=== PATIENT | male | born 1945 | race Caucasian/White ===

== ENCOUNTER 2019-04-24 13:34 | Inpatient (IN) | payer MEDICARE, OTHER ==
[~2019-04-24] VITALS: Ht 167.6 cm; Wt 88.9 kg
[2019-04-24] MEDS ORDERED: SYNTHROID125 MCG PO (14:01)
[2019-04-24] MEDS ORDERED: OMEPRAZOLE20 M1 PO (14:01)
[2019-04-24] MEDS ORDERED: BAYER CHEWABLE81 MG PO (14:02)
[2019-04-24] MEDS ORDERED: CADUET 10 MG/101 TAB (14:02)
[2019-04-24] MEDS ORDERED: ZYLOPRIM100 MG PO (14:02)
[2019-04-24 14:22] VITALS: BP 133/72; BMI 31.7
[2019-04-24 14:33] LABS: BASOPHILS 0.2 % (0-2); EOSINOPHILS 0.1 % (0-7); HEMATOCRIT 36.4 % (42.0-54.0); HEMOGLOBIN 12.6 g/dL (13.5-17.5); IMMATURE GRANULOCYTES 0.2 % (0-5); LYMPHOCYTES 8.2 % (15-50); MCH 27.2 pg (26.0-34.0); MCHC 34.6 g/dL (31.0-37.0); MCV 78.6 fL (80.0-100.0); MEAN PLATELET VOLUME 9.1 fL (7.4-10.4); MONOCYTES 8.4 % (2-11); NEUTROPHILS 82.9 % (40-80); PLATELET COUNT 217 10x3/uL (130-400); RBC 4.63 10x6/uL (4.20-6.10); RDW 14.1 % (11.5-14.5); WBC 8.6 10x3/uL (4.8-10.8)
--- NOTE | 2019-04-24 14:42 | NUR ---
PATIENT ADMITTED TO ROOM 2222. ADMISSION ASSESSMENT COMPLETED. IV SITED TO LEFT WRIST. TEMP 101.8. WILL SPEAK WITH DR CALZADA ABOUT POSSIBLE BLOOD CULTURES BEFORE HANGING ABX.
--- NOTE | 2019-04-24 14:48 | NUR ---
SPOKE WITH MELQUIADES, NURSE FOR DR CALZADA. STATES WILL INFORM DR CALZADA OF TEMP AND CALL BACK WITH ORDERS. WILL CONTINUE TO MONITOR.
--- NOTE | 2019-04-24 16:18 | NUR ---
SPOKE WITH MELQUIADES, DR CALZADA'S NURSE, WHO STATED ORDER STAT BLOOD CULTURES AND TYLENOL 650 Q5PRN FEVER.
[2019-04-24 16:37] VITALS: BP 140/74
--- NOTE | 2019-04-24 17:33 | NUR ---
TEMP 99.5 AFTER PRN TYLENOL.
--- NOTE | 2019-04-24 18:40 | NUR ---
RESTING IN BED. DENIES NEEDS. CALL MANN AND PERSONAL ITEMS IN REACH.
[2019-04-24 20:00] VITALS: BP 136/72
--- NOTE | 2019-04-24 23:21 | HP ---
PATIENT: JAK ALTMAN MEDICAL RECORD: [id number] ACCOUNT: [id number] LOCATION:D.MS Mike2222 : 45 ADMISSION DATE: 04/24/19 PCP: COURTNEY CALZADA MD HISTORY AND PHYSICAL EXAMINATION DATE OF ADMISSION: 04/24/2019. CHIEF COMPLAINT: Sore on buttocks. HISTORY OF PRESENT ILLNESS: This is a 74-year-old white male who was brought in today for sinus congestion and cough, cold and a sore on his buttocks. He and his were on a cruise 8 days ago. He contracted cold with cough and congestion and he took some kmzl-rvb-zoqgtre medication and felt better after a few days only to have it returned with a vengeance 2 days ago. He states his nose stopped up and he is having some cough. Five days ago, he started having another sore on his left buttock and this is the fourth abscess he has had in the last year and a half over his body. The abscess on the left buttock is 5 cm in size. It appears to have drained some at some point, but the opening is no longer open and nothing is draining down. There is a lot of tenderness here. With the proximity of this abscess to the rectal area, I did not feel comfortable coping up this wound myself and he is directly admitted to [facility] for further treatment. General surgery will be consulted. PAST MEDICAL AND SURGICAL HISTORY: He has high cholesterol, history of gout, hypertension, and underactive thyroid. PAST SURGICAL HISTORY: He had a salivary gland removed in [address] Selby. MEDICATIONS: Allopurinol 100 mg once a day, amlodipine 10 ? atorvastatin 10 once a day, levothyroxine 125 mcg once a day, aspirin 81 mg once a day, and omeprazole 20 mg once a day. DRUG ALLERGIES: None. HABITS: Never smoked, drinks alcohol only socially. No illicit drug use. SOCIAL HISTORY: He is , retired . FAMILY HISTORY: Parents are . REVIEW OF SYSTEMS: GENERAL: No major weight changes. HEENT: No particular sinus or allergy problems. RESPIRATORY: No history of asthma or emphysema. CARDIAC: No history of chest pain or palpitations. GASTROINTESTINAL: He has had some heartburn/reflux. GENITOURINARY: No significant problems there. MUSCULOSKELETAL: No significant problems there. SKIN: He has had now 4 abscesses in the last year and a half that has come up on various spots in his body. NEUROLOGIC: No migraines or seizures. PSYCHIATRIC: Denies depression or melancholia. PHYSICAL EXAMINATION: VITAL SIGNS: Today, he had a temperature spike of 101.8 earlier in the HISTORY AND PHYSICAL [id number] [facility], temperature when last checked was 100.0, pulse 106, respirations 20, blood pressure 140/74, and O2 sat 96%. GENERAL: He is awake, alert, does not appear in acute distress. He is able to walk-in to my office without a lot of pain. HEENT: Grossly within normal limits. NECK: Supple, no thyromegaly, no bruit. HEART: Regular rate and rhythm. LUNGS: Clear. ABDOMEN: Soft, flat, nontender. EXTREMITIES: No edema; however, in the left buttock area, there is an approximately 5 tense abscess. There has been evidence that there has been some drainage from this area though that opening has closed and there is no drainage now. RECTAL: Not done. LABORATORY DATA: CBC showed a white count of 8600, hemoglobin 12.6, hematocrit 36.4 with 83% neutrophils. Blood cultures have been done. ASSESSMENT: 1. Left buttock abscess. 2. Fever. PLAN: He is admitted, started on antibiotics. General surgery is consulted for treatment. Other tests or procedures as warranted. TRANSINT:[id number] Voice Confirmation ID: [id number] DOCUMENT ID: [id number] COURTNEY CALZADA MD at 2321 CC: [id number] DICTATION DATE: 04/24/191814 SCRATCH BRUSHER: 04/24/191914 ADM IN [facility] [address] [place] [address]
--- NOTE | 2019-04-24 23:44 | NUR ---
I have reviewed this patient and I concur with the Shift Assessment completed by the Licensed Practical Nurse today this shift.
--- NOTE | 2019-04-24 23:46 | NUR ---
PT RESTING IN BED. ALERT AND OREIENTED. NO SIGNS OF DISTRESS. BREATHING EVEN AND UNLABORED. PT STATES NO PROBLEMS AT THIS TIME. IV SITE LT WRIST DRESSING CLEAN DRY AND INTACT. NO SIGNS OF INFECTION. BOWEL SOUNDS ACTIVE. LUNG SOUNDS CLEAR. SKIN CLEAN DRY AND INTACT. WILL CONTINUE PLAN OF CARE. CALL LIGHT IN REACH BED LOWERED AND LOCKED.
[2019-04-25] VITALS: BP 125/62
[2019-04-25 04:00] VITALS: BP 140/63
[2019-04-25 05:46] LABS: BASOPHILS 0.1 % (0-2); EOSINOPHILS 0.2 % (0-7); HEMATOCRIT 36.9 % (42.0-54.0); HEMOGLOBIN 12.5 g/dL (13.5-17.5); IMMATURE GRANULOCYTES 0.4 % (0-5); LYMPHOCYTES 13.7 % (15-50); MCH 26.8 pg (26.0-34.0); MCHC 33.9 g/dL (31.0-37.0); MCV 79.2 fL (80.0-100.0); MEAN PLATELET VOLUME 9.2 fL (7.4-10.4); MONOCYTES 10.5 % (2-11); NEUTROPHILS 75.1 % (40-80); PLATELET COUNT 187 10x3/uL (130-400); RBC 4.66 10x6/uL (4.20-6.10); RDW 14.4 % (11.5-14.5); WBC 8.5 10x3/uL (4.8-10.8)
[2019-04-25 05:59] LABS: CALCIUM 8.2 mg/dL (8.5-10.1); CARBON DIOXIDE 27.3 mmol/L (21.0-32.0); CREATININE - SERUM 1.3 mg/dL (0.6-1.3); POTASSIUM - SERUM 4.3 mmol/L (3.5-5.1)
--- NOTE | 2019-04-25 07:47 | NUR ---
PT RESTING IN BED. NO SIGNS OF DISTRESS. IV TO LEFT WRIST PATENT NO REDNESS OR TENDERNESS. SURGERY TODAY. DENIES ANY FURTHER NEED AT THIS TIME. CALL LIGHT IN REACH. BED LOW POSITION. NO FAMILY AT BEDSIDE AT THIS TIME.
[2019-04-25 08:46] VITALS: BP 123/64
[2019-04-25 11:44] VITALS: BP 114/54
[2019-04-25 12:35] VITALS: Ht 167.6 cm; Wt 88.9 kg
--- NOTE | 2019-04-25 14:22 | MORECARE ---
CASE MANAGEMENT DISCHARGE SUMMARY PATIENT: JAK ALTMAN UNIT: [id number] ADM DATE: 04/24/19 AGE: 74 : 45 SEX: M ROOM/BED: D.2222 AUTHOR: SAM GOODEN PHYSICIAN: REFERRING PHYSICIAN: COURTNEY CALZADA MD DATE OF SERVICE: 04/25/19 Discharge Plan Patient Name: JAK ALTMAN Facility: [facility]:[place] : 1945 Planned Disposition: Anticipated Discharge Date: Discharge Date: Expected LOS: Initial Reviewer: [email or web address] Initial Review Date: 04/25/2019 Generated: 04/25/19 3:22 pm Comments DCP- Discharge Planning Updated by [email or web address]: Sera Peters on 04/25/19 1:[address] Patient Name: JAK ALTMAN Admission Status: Elective Accout number: [id number] Admission Date: 04-24-2019 : 1945 Admission Diagnosis: Attending: COURTNEY CALZADA Current LOS: 1 Anticipated DC Date: Planned Disposition: Primary Insurance: MEDICARE A & B Discharge Planning Comments: CM met with patient at bedside after explaining CM role and obtaining verbal consent. CM discussed availability / needs of home health and medical equipment. Patient denies any discharge needs at this time. Marbleizing Machine Tender: Sera Peters DCPIA - Discharge Planning Initial Assessment Updated by [email or web address]: Sera Peters on 04/25/19 2:15 pm * Is the patient Alert and Oriented? Yes * PCP ELSI * Pharmacy [facility] * Preadmission Environment Home with Family * ADLs Independent * Equipment None * Community resources currently utilized None * Additional services required to return to the preadmission environment? No * Can the patient safely return to the preadmission environment? Yes * Has this patient been hospitalized within the prior 30 days at any hospital? No Patient Name: JAK ALTMAN Page [phone] at 1422 All edits/amendments must be made on the electronic document DICTATION DATE: 04/25/19 142 TERRITORY SALES REPRESENTATIVE: LATHA 04/25/19 1421 RPT#: [id number] DC DATE: STATUS: ADM IN [facility] [address] [place] [address] END OF REPORT
[2019-04-25 18:14] VITALS: BP 133/81
--- NOTE | 2019-04-25 20:00 | NUR ---
A/O WITH NO SIGNS OF ACUTE DISTRESS NOTED. IV TO THE LT WRIST WITH NO REDNESS OR SWELLING. CLEAN DRESSING TO THE LT BUTTOCK. DENIES PAIN OR OTHER NEEDS AT THIS TIME. CONTINUE PLAN OF CARE.
[2019-04-26 01:03] VITALS: BP 125/67
[2019-04-26 04:58] VITALS: BP 100/61
[2019-04-26 09:26] VITALS: BP 127/67
[2019-04-26 12:48] VITALS: BP 127/66
--- NOTE | 2019-04-26 18:44 | NUR ---
I have reviewed this patient and I concur with the Shift Assessment completed by the Licensed Practical Nurse today this shift.
--- NOTE | 2019-04-26 19:45 | NUR ---
PT SITTING UP IN BED WITHOUT DISTRESS, AOX4. IV LEFT WRIST SL. STATES PAIN ONLY WHEN AMBULATING. DENIES FURTHER NEEDS. CL IN REACH, WILL CTM
[2019-04-26 20:00] VITALS: BP 118/61
[2019-04-27] VITALS: BP 119/66
[2019-04-27 04:00] VITALS: BP 115/69
--- NOTE | 2019-04-27 08:00 | NUR ---
PATIENT IN BED WITH IV INTACT. NO COMPLAINTS OR SIGNS OF DISTRESS. FAMILY AT BEDSIDE. DRESSING TO BUTTOCK CDI. CALL LIGHT WITHIN REACH.
[2019-04-27 08:47] VITALS: BP 122/69
--- NOTE | 2019-04-27 11:00 | NUR ---
PATIENT SITTING UP IN BED. DENIES ANY PAIN OR NEEDS AT THIS TIME. IV INTACT. CALL LIGHT WITHIN REACH.
[2019-04-27 13:20] VITALS: BP 97/54
[2019-04-27] MEDS ORDERED: CLEOCIN HCL300 MG PO (13:26)
--- NOTE | 2019-04-27 14:00 | NUR ---
PATIENT IN BED WITH IV INTACT. NO COMPLAINTS. FAMILY AT BEDSIDE. CALL LIGHT WITHIN REACH.
[2019-04-27] MEDS ORDERED: HYDROCODON-ACE1 EAC7 PO (15:08)
--- NOTE | 2019-04-27 16:00 | NUR ---
PATIENT IN BED WITH IV OUT. REMOVED WITH CATH TIP INTACT. PACKING IN WOUND REMOVED AND WOUND CLEANED OUT WITH PEROXIDE. NEW CLEAN GAUZE AND ABD APPLIED. PATIENT RECIEVED DC INSTRUCTIONS. FAMILY AT BEDSIDE. NORCO SCRIPT GIVEN TO PATIENT. CALL LIGHT WITHIN REACH.
[2019-04-27 16:07] VITALS: BP 132/68
--- NOTE | 2019-04-27 16:30 | NUR ---
PATIENT AMBULATED OUT OF HOSPITAL WITH AND PERSONAL BELONGINGS TO PRIVATE VEHICLE. REFUSED WC AT THIS TIME.
--- NOTE | 2019-04-30 12:07 | MORECARE ---
CASE MANAGEMENT DISCHARGE SUMMARY PATIENT: JAK ALTMAN UNIT: [id number] ADM DATE: 04/24/19 AGE: 74 : 45 SEX: M ROOM/BED: D.2222 AUTHOR: BERKLEYDOC PHYSICIAN: REFERRING PHYSICIAN: COURTNEY CALZADA MD DATE OF SERVICE: 04/30/19 Discharge Plan Patient Name: JAK ALTMAN Facility: [facility]:[place] : 1945 Planned Disposition: Anticipated Discharge Date: Discharge Date: 04/27/2019 Expected LOS: Initial Reviewer: [email or web address] Initial Review Date: 04/25/2019 Generated: 04/30/19 1:07 pm DCP- Discharge Planning Updated by [email or web address]: Sera Peters on 04/25/19 1:[address] Patient Name: JAK ALTMAN Admission Status: Elective Accout number: [id number] Admission Date: 04-24-2019 : 1945 Admission Diagnosis: Attending: COURTNEY CALZADA Current LOS: 1 Anticipated DC Date: Planned Disposition: Primary Insurance: MEDICARE A & B Discharge Planning Comments: CM met with patient at bedside after explaining CM role and obtaining verbal consent. CM discussed availability / needs of home health and medical equipment. Patient denies any discharge needs at this time. Weight Training Instructor: Sera Peters DCPIA - Discharge Planning Initial Assessment Updated by [email or web address]: Sera Peters on 04/25/19 2:15 pm * Is the patient Alert and Oriented? Yes * PCP ELSI * Pharmacy [facility] * Preadmission Environment Home with Family * ADLs Independent * Equipment None * Community resources currently utilized None * Additional services required to return to the preadmission environment? No * Can the patient safely return to the preadmission environment? Yes * Has this patient been hospitalized within the prior 30 days at any hospital? No Coverage Notice Reviewer: [id number] - Sera Peters Notice Issued Date-Time: 04/27/2019 15:27 Notice Type: IM Discharge Notice Notice Delivered To: Patient Relationship to Patient: Telecasting Engineer Name: Delivery Method: HAND - Hand Delivered Vida Days: Prior Verbal Notification: Recipient Understood Notice: Yes Recipient Signature: Yes Med Rec Note Co-signed by Attending: Coverage Notice Comment: Last DP export: 04/25/19 1:22 p Patient Name: JAK ALTMAN Page [phone] at 1207 All edits/amendments must be made on the electronic document DICTATION DATE: 04/30/191205 MID TEACHER: LATHA 04/30/191205 RPT#: [id number] DC DATE:04/27/19 STATUS: DIS IN [facility] [address] [place] [address] END OF REPORT
--- NOTE | 2019-05-08 09:58 | OP ---
PATIENT NAME: JAK ALTMAN MEDICAL RECORD: [id number] :45 LOCATION:D.MS Mike2222 ADMISSION DATE:04/24/19 SURGEON: CLAUDINE HERNANDEZ MD DATE OF OPERATION: 04/25/2019 PREOPERATIVE DIAGNOSIS: Left buttock abscess. POSTOPERATIVE DIAGNOSIS: Left buttock abscess. PROCEDURE: Excisional debridement with marsupialization and packing of left buttock abscess. Dimensions of the debridement, including margins, measures 2.2 x 1.8 cm including skin and subcutaneous tissue as well as underlying abscess cavity. The risks, possible complication, and alternatives to the procedure were explained to the patient. He elects to proceed. OPERATIVE COURSE: The patient was conveyed to the operating room electively on 04/25/2019. General anesthesia was induced by anesthesia staff. The patient was sterilely prepped and draped. With the use of scalpel, I excised skin and subcutaneous tissue overlying the abscess cavity. Cultures were obtained. Purulence was identified. I then curetted out the abscess cavity. The dimensions of the debridement are included above. I irrigated with hydrogen peroxide. I then marsupialized the wound with a running locking 3-0 Vicryl Rapide suture. I then packed the wound with Kerlix that have been soaked in Dakin's, a dilute Dakin solution. A sterile dressing was applied. The patient was then extubated and conveyed to the post-anesthesia care unit where he was in stable condition. My plan is that he will require IV antibiotics for several days before being dismissed home on oral antibiotics. TRANSINT:[id number] Voice Confirmation ID: [id number] DOCUMENT ID: [id number] CLAUDINE HERNANDEZ MD at 0958 CC: [id number] DICTATION DATE: 05/07/19 1253 BUS CLEANER: 05/08/19 0032 DIS IN 04/27/19 [place] [address]
== END 2019-04-27 16:30 | disposition home or self-care (01) | DRG 572 ==
LOC: D.MS 13:34
PROVIDERS: Surgery; ADMIT Family Medicine; ATTEND Family Medicine
PROC: 0JB90ZZ Excision of Buttock Subcutaneous Tissue and Fascia, Open Approach (ICD-10-PCS; principal; 2019-04-25 19:00)
DX: L02.31 Cutaneous abscess of buttock (principal); M10.9 Gout, unspecified; I10 Essential (primary) hypertension; E78.00 Pure hypercholesterolemia, unspecified; E03.9 Hypothyroidism, unspecified